=== PATIENT | female | born 1970 | race Caucasian/White ===

== ENCOUNTER 2017-09-12 16:22 | Emergency (ER) | payer OTHER ==
[~2017-09-12] VITALS: Ht 160 cm; Wt 63.5 kg
[2017-09-12] MEDS ORDERED: PANTOPRAZOLE SO40 MG PO (18:50)
[2017-09-12] MEDS ORDERED: CHLORDIAZEPOXID25 MG PO (18:50)
--- NOTE | 2017-09-13 15:28 | EKG ---
[facility] [address] [facility] [place], [place] [address] Signed Normal sinus rhythm Normal ECG Confirmed by MALIK EDWARDS MD ([id number]) on 09/13/2017 3:27:54 PM Electronically Signed By: MALIK EDWARDS MD 09/13/17 1528 PATIENT NAME: DOROTA DESIR Electrocardiogram DATE OF : 66 PHYSICIAN: MALIK EDWARDS MD REPORT #: [id number] REPORT IS CONFIDENTIAL AND NOT TO BE RELEASED WITHOUT AUTHORIZATION
== END 2017-09-12 19:00 | disposition home or self-care (01) ==
LOC: ED 16:22
DX: K20.9 Esophagitis, unspecified (principal); F10.20 Alcohol dependence, uncomplicated; Y90.6 Blood alcohol level of 120-199 mg/100 ml; R07.89 Other chest pain; F17.200 Nicotine dependence, unspecified, uncomplicated
CPT/HCPCS: 80053; 83690; 84484; 85025; 93005; 93010; 96361; 96374; 96375; 99284; G0480; J3411; J7030

== ENCOUNTER 2018-06-06 04:00 | Emergency (ER) | payer OTHER ==
[~2018-06-06] VITALS: Ht 160 cm; Wt 63.5 kg
[~2018-06-06 04:00] MED LIST: CHLORDIAZEPOXID25 MG PO; PANTOPRAZOLE SO40 MG PO
[2018-06-06] MEDS ORDERED: VENTOLIN HFA18 GM INH (04:09)
[2018-06-06] MEDS ORDERED: ALBUTEROL2.5 MG/3 M INH (05:17)
[2018-06-06] MEDS ORDERED: PREDNISONE20 MG PO (05:17)
--- NOTE | 2018-06-07 15:19 | EKG ---
[facility] [address] [facility] [place] [address] Signed Sinus tachycardia Nonspecific T wave abnormality Abnormal ECG When compared with ECG of 12-SEP-2017 16:26, Nonspecific T wave abnormality now evident in Inferior leads Nonspecific T wave abnormality now evident in Lateral leads Confirmed by ALIZA VILLARREAL DO ([id number]) on 06/07/2018 3:19:11 PM Electronically Signed By: ALIZA VILLARREAL DO 06/07/18 1519 PATIENT NAME: DOROTA DESIR BROOKS Electrocardiogram DATE OF : 66 PHYSICIAN: ALIZA VILLARREAL DO REPORT #: [id number] REPORT IS CONFIDENTIAL AND NOT TO BE RELEASED WITHOUT AUTHORIZATION
== END 2018-06-06 05:34 | disposition home or self-care (01) ==
LOC: ED 04:00
DX: J45.901 Unspecified asthma with (acute) exacerbation (principal); Z87.891 Personal history of nicotine dependence; Z79.899 Other long term (current) drug therapy
CPT/HCPCS: 71045; 80053; 83735; 84484; 85025; 93005; 93010; 94644; 96374; 99285-25; J2930; J7030

== ENCOUNTER 2018-07-09 03:36 | Emergency (ER) | payer OTHER ==
[~2018-07-09] VITALS: Ht 160 cm; Wt 57.7 kg
[~2018-07-09 03:36] MED LIST changes: +ALBUTEROL2.5 MG/3 M INH; +PREDNISONE20 MG PO; +VENTOLIN HFA18 GM INH
[2018-07-09] MEDS ORDERED: WELLBUTRIN SR100 MG (03:48)
[2018-07-09] MEDS ORDERED: ALBUTEROL2.5 MG/3 M INH (05:20)
[2018-07-09] MEDS ORDERED: LEVAQUIN750 MG PO (11:34)
== END 2018-07-09 05:30 | disposition home or self-care (01) ==
LOC: ED 03:36
DX: J45.901 Unspecified asthma with (acute) exacerbation (principal); Z87.891 Personal history of nicotine dependence; Z79.899 Other long term (current) drug therapy
CPT/HCPCS: 71046; 80053; 85025; 94644; 96374; 99285-25; J2930

== ENCOUNTER 2018-07-09 09:16 | Inpatient (IN) | payer OTHER ==
[~2018-07-09] VITALS: Ht 160 cm; Wt 58.7 kg
[~2018-07-09 09:16] MED LIST changes: +WELLBUTRIN SR100 MG
--- OUTSIDE RECORDS SUMMARY | 2018-07-09 09:18 | XMS ---
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 [facility] has no Care Guidelines for this patient. [place] VISIT COUNT (12 MO.) 4 [facility] [place] [facility] TOTAL 4 NOTE: Visits indicate total known visits. ED/C VISIT TRACKING (12 MO.) 07/09/2018 09:[address] 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
[2018-07-09] MEDS ORDERED: LEVAQUIN750 MG PO (11:34)
--- NOTE | 2018-07-09 14:30 | NUR ---
PATIENT STILL VERY WHEEZY AND SHORT OF BREATH. PT ATTEMPTING TO DO PURSED LIP BREATHING, BUT AUDIBLE WHEEZING NOTED. PT SWITCHED FROM A NASAL CANNULA 2-3 L TO AN OXY MASK AT 5 L SP02 WAS HOVERING AROUND 90%. WITH OXYMASK ON, SP02 AROUND 97%.
--- NOTE | 2018-07-09 14:38 | NUR ---
RT IN ROOM. PT STRUGGLING TO BREATH. DR. VILLARREAL CALLED ADN AT BEDSIDE. PT TO BE STARTED ON BIPAP.
--- NOTE | 2018-07-09 15:23 | NUR ---
PATIENT RESTING IN BED WITH BIPAP ON. PATIENT HAS BEEN WEARING BIPAP SINCE 1440 WITH SETTINGS OF 14/8 AND 40% FI02.PT'S REMAINS AT BEDSIDE AND ATTENTIVE TO PATIENT. CONTINUE TO MONITOR.
--- NOTE | 2018-07-09 15:50 | NUR ---
PATIENT VERY SHORT OF BREATH AGAIN AND ASKIGN FOR MORE AIR WHILE ON BIPAP. PT GIVEN 1 MG MORPHINE (SEE EMAR) AND RT CALLED. PT NOW RECEIVING NEB TX WHILE ON BIPAP. PT FEELING NAUSEOUS AND TAKES BIPAP OFF BRIEFLY BUT QUICKLY NEEDS BIPAP MASK BACK ON AGAIN SHE STATES, "I CAN'T BREATH." PATIENT RE ASSURED BEST POSSIBLE. PT'S IN ROOM AND ATTENTIVE TO HELPING PATIENT. PATIENT TEARFUL AND STATES TO , "I'M GOING TO TONIGHT." PATIENT REASSURED THAT SHE IS DOING WELL WITH HER BREATHING AND NEEDS TO CONTINUE TO TRY AND STAY CALM AND FOCUS ON HER BREATHING. PT LISTENING TO RN WELL AND TRYING TO RELAX BEST POSSIBLE. CONTINUE TO MONITOR CLOSELY. PATIENT RECENTLY WAS OUT OF BED TO VOID AND ABOUT 10 MINUTES AFTER VOIDING IS WHEN SHE BECAME SO SHORT OF BREATH AGAIN. PT INSTRUCTED THAT GETTING OUT OF BED NEEDS TO BE AVOIDED AT THIS TIME AND WILL ASK MD FOR WILSON FOR PATIENT. PATIENT AGREEABLE AND WILLING TO HAVE WILSON CATHETER. HR IN THE 120s-140s. LAST BP 142/90 (103).
--- NOTE | 2018-07-09 16:10 | NUR ---
WILSON CATHETER PLACED AFTER REC'D TELEPHONE ORDER FROM DR. VILLARREAL. PT WITH >700 ML DILUTE YELLOW URINE IMMEDIATELY. PT RESTING NOW IN BED WITH CINDY AT BEDSIDE. HR 127, SP02 98%, BP 131/86 (8), RR 22. CONTINUE TO MONITOR CLOSELY.
--- NOTE | 2018-07-09 17:50 | NUR ---
PATIENT GIVEN NEB TX AT 1720 BY RT WHILE PATIENT REMAINS ON BIPAP. PATIENT NOTES THAT WHEN SHE HAS THE MORPHINE, IT HELPS QUITE A BIT. HR REMAINS ELEVATED IN THE 120-130s, SINUS TACH. EKG DONE PER RT. CONTINUE TO MONITOR.
--- NOTE | 2018-07-09 18:41 | NUR ---
PATIENT RESTING MORE COMFORTABLY AT THIS TIME. PT INDICATES BY THAT SHE IS FEELING BETTER OVERALL WITH HER GESTURING. HR HAS BEEN NOTED TO BE LOW 119 BRIEFLY, BUT CURRENTLY IS 120s. PT REMAINS ON 19/10 40% BIPAP. PRN ATIVAN AND PRN MORPHINE NEEDED.
--- NOTE | 2018-07-09 18:46 | EKG ---
[facility] [address] [facility] [place] [address] Signed Supraventricular tachycardia Nonspecific ST abnormality Abnormal ECG When compared with ECG of 06-JUN-2018 04:06, Nonspecific T wave abnormality no longer evident in Inferior leads Nonspecific T wave abnormality no longer evident in Lateral leads Confirmed by ALIZA VILLARREAL DO ([id number]) on 07/09/2018 6:46:21 PM Electronically Signed By: ALIZA VILLARREAL DO 07/09/18 1846 PATIENT NAME: DOROTA DESIR BROOKS Electrocardiogram DATE OF : 66 PHYSICIAN: ALIZA VILLARREAL DO REPORT #: [id number] REPORT IS CONFIDENTIAL AND NOT TO BE RELEASED WITHOUT AUTHORIZATION
--- NOTE | 2018-07-09 19:00 | NUR ---
PATIENT STARTING TO FEEL TIGHT IN HER CHEST AGAIN BUT STATES, "I'M TRYING TO STAY CALM." LUNG SOUNDS REVEAL WHEEZES THROUGOUT, LOUDER ON THE RIGHT. HR 120s. SP02 IS 97%. PT ELIGIBLE FOR NEXT NEB AT 1915. WILSON CONTINUES TO DRAIN CLEAR YELLOW URINE.
--- NOTE | 2018-07-09 19:45 | NUR ---
Received report from YESENIA Lincoln at bedside, Dr. Diggs also at bedside. Patient is sitting with HOB at 90 degrees wearing BiPAP, tachpneic, denies feeling SOB, denies feeling chest tightness, reports that "breathing feels better." Denies needs at this time. SpO2 98% with 40% FiO2. IVF infusing, call light within reach, family at bedside.
--- NOTE | 2018-07-09 20:15 | NUR ---
Patient is alert and oriented, denies feeling anxious, breathing is unlabored, tachypnea noted with R between 22 and 26, SpO2 98% on BiPAP with 40% FiO2, denies feeling SOB, denies chest tightness. EXW heard throughout all lung mccarty bilaterally, diminished in left mccarty. HR remains between 120s and 140s, Dr. Diggs is aware, states that we will just monitor throughout the night, will address it if tachycardia continues into tomorrow. Denies nausea, abdomen is non-tender, bowel tones active. Fang present, draining dilute urine. IV sites intact, IVF infusing per order, denies pain at this time, has no needs. Call light within reach, at bedside.
--- NOTE | 2018-07-09 20:45 | NUR ---
Patient reports "my lungs are starting to feel tight again, like they were before." No changes in breathing effort from previous assessment. RT called for breathing treatments.
--- NOTE | 2018-07-09 21:39 | NUR ---
Patient reports her chest feeling "tight," has increased work of breathing, RR up to 28, also reports anxiety, 1mg IV PRN morphine given for SOB. Will continue to monitor closely.
--- NOTE | 2018-07-09 22:09 | NUR ---
Patient is restful with eyes closed, RR 22, HR 105, no SOB noted, does not have increased work of breathing, remains on BiPAP. at bedside, call light within reach.
--- NOTE | 2018-07-09 23:00 | NUR ---
Patient restful with eyes closed, RR 20, HR 100 to 105, denies feeling SOB, denies anxiety. No needs at this time, RT to room for breathing treatment. Call light within reach, at bedside.
--- NOTE | 2018-07-10 00:15 | NUR ---
Patient is restful with eyes closed, breathing is unlabored, RR 21, SpO2 99% with 12/8, 40% FiO2 BiPAP, INW and EXW in right lung mccarty, diminished EXW in left lung mccarty. HR 100 to 110. Call light within reach.
--- NOTE | 2018-07-10 00:40 | NUR ---
Patient requesting drink of water, after taking BiPAP off, after coughing and having drink of water, BiPAP off for 30 seconds or less, patient's work of breathing increased, RR up to 28, SpO2 down to 90%. Placed patient back on BiPAP, RR quickly down between 22 and 24, SpO2 now 98% again. Denies feeling SOB, states "I am feeling much better overall." Denies further needs at this time. Call light within reach, at bedside, IVF infusing per order.
--- NOTE | 2018-07-10 00:55 | NUR ---
Patient has more coughing, now sitting in tripod position, reports anxiety, increased work of breathing, RT called for albuterol treatment, also administered 2 mg IV PRN morphine, will continue to monitor closely.
--- NOTE | 2018-07-10 01:15 | NUR ---
Patient has continued anxiety and mild SOB, 0.5 mg IV PRN lorazepam given. Patient denies further needs at this time. RR now 18, HR 110 to 115. Call light within reach.
--- NOTE | 2018-07-10 02:30 | NUR ---
Patient restful with eyes closed, breathing is even and unlabored, RR 17, SpO2 98% with 40% FiO2 14/8 on BiPAP. HR between 90 and 100. Call light within reach.
--- NOTE | 2018-07-10 04:20 | NUR ---
Patient remains restful, occasional coughing still present, patient states that there is no change in breathing at this time, reports mild SOB, denies need for PRN morphine or PRN ativan. Assessment done, no acute change from previous. HR 120s while awake, RR 24 to 28. Denies needs at this time, call light within reach, at bedside.
--- NOTE | 2018-07-10 06:30 | NUR ---
Patient restful with eyes closed, breathing is even and unlabored on BiPAP. Denies needs at this time, states "breathing feels much better this morning." Call light within each.
--- NOTE | 2018-07-10 08:01 | NUR ---
PATIENT AWAKE AND RESTING ON BIPAP UPON INITIAL ASSESSMENT THIS AM. PT WORE BIPAP MAJORITY OF NIGHT AND ONLY ABLE TO TAKE SMALL BREAKS OFF OF IT. ASSESSMENT COMPLETE. EXP AND INSP WHEEZES REMAIN THIS AM. BIPAP 14/8 WITH 40% FI02. PT STATES OVERALL SHE IS FEELING BETTER, AND HER EPISODES ARE LESS SEVERE THAN YESTERDAY. PT STILL GETS CHEST TIGHTNESS WHEN SHE BECOMES SHORT OF BREATH. NEB GIVEN THIS AM. PT REQUESTING TO HAVE A SMALL AMOUNT OF THE MEDICATION THAT "HELPS TAKE THE EDGE OFF." PT GIVEN 1 MG MORPHINE AT THIS TIME. WILSON DRAINING YELLOW DILUTE URINE. HR LOW 100s. PLAN OF CARE DISCUSSED. QUESTIONS ANSWERED BEST POSSIBLE. CONTINUE TO MONITOR.
--- NOTE | 2018-07-10 08:27 | NUR ---
PATIENT OFF BIPAP AT 0825 TO TRY A CLEAR LIQUID TRAY. CONTINUE TO MONITOR. AM MEDS TO BE GIVEN AT THIS TIME WELL.
--- NOTE | 2018-07-10 08:40 | NUR ---
PATIENT REMAINS OFF BIPAP ON 3 L NC AT THIS TIME. PT TOLERATED HER CLEAR LIQUIDS WELL. HR IN THE 90s CURRENLY. AT BEDSIDE.
--- NOTE | 2018-07-10 09:21 | NUR ---
PATIENT CONTINUES TO REMAIN OFF BIPAP AT THIS TIME, ON 3 L NC AND DOING WELL. PT STATES, "I FEEL OKAY, I'M A LITTLE BETTER." PATIENT BRUSHING TEETH IN BED AND WASHING FACE WITH WARM CLOTH. AT BEDSIDE. CONTINUE TO MONITOR.
--- NOTE | 2018-07-10 10:47 | NUR ---
DR. VILLARREAL IN TO SEE PATIENT. PT REMAINS OFF BIPAP SINCE 824. PT REPORTS SHE IS ABLE TO TELL WHEN SHE IS STARTING TO NEED A NEB AND STATES AT THIS TIME SHE IS STARTING TO FEEL A LITTLE TENSE AGAIN. HR 90-100s. RT CALLED AND HERE NOW TO GIVE NEB TX.
--- NOTE | 2018-07-10 11:40 | NUR ---
PATIENT REMAINS OFF BIPAP BUT ON OXYGEN 3 L NC. AFTER NEB TX AROUND 1115, PATIENT TOOK OXYGEN OFF TO BLOW HER NOSE AND SP02 NOTED TO DROP TO 86% WITHIN ABOUT 1 MINUTE. OXYGEN PLACED BACK ON AND SP02 NOW BACK TO 96-97%. PT IS NOW SITTING UP IN BED AND EATING LUNCH. PT'S DAUGHER REMAINS AT BEDSIDE. HR 110s CURRENTLY. CONTINUE TO MONITOR.
--- NOTE | 2018-07-10 12:05 | NUR ---
PATIENT CALLS AND STATES SHE FEELS LIKE SHE NEEDS A NEB OR TO GO BACK ON THE BIPAP MASK SHE CAN FEEL THE TIGHTNESS COMING BACK ON. LUNG SOUNDS REVEAL EXP WHEEZES THROUGHOUT. PLACED BIPAP BACK ON AT THIS TIME AND WILL RE-EVALUATE PATIENT IN 5-10 MINUTES. SP02 IS 99%. CONTINUE TO MONITOR.
--- NOTE | 2018-07-10 12:37 | NUR ---
PATIENT OFF BIPAP AND BACK ON 3 L AT THIS TIME. PT STATES SHE FEELS LESS SHORT OF BREATH AT THE MOMENT. ENCOURAGED TO CONTINUE RESTING WITHOUT TALKING TOO MUCH AT THIS TIME.
--- NOTE | 2018-07-10 14:05 | NUR ---
PATIENT HAS BEEN RESTING IN BED. IV SOLUMEDROL GIVEN AT THIS TIME. PT DENIES NEEDING NEB AT THIS TIME. PT REMAINS ON 3 L NC. PT'S AND FRIEND AT BEDSIDE. CONTINUE TO MONITOR.
--- NOTE | 2018-07-10 15:15 | NUR ---
PATIENT STATES SHE CAN FEEL TIGHTNESS COMING ON AGAIN. RT CALLED FOR NEB TX AND NOW HERE GIVING NEB. LAST NEB WAS AT 1100. CONTINUE TO MONITOR.
--- NOTE | 2018-07-10 16:16 | NUR ---
PATIENT HELPED UP TO CHAIR AND GIVEN BATH WIPES TO WIPE DOWN SURFACES. WILSON CATH CARE PROVIDED. PT TOLERATED THIS ACTIVITY WELL AND REMAINS SITTING IN CHAIR AT THIS TIME. PT DENIES FEELING SHORT OF BREATH WITH THIS ACTIVITY. OXYGEN TURNED DOWN TO 2 L NC. CALL LIGHT WITHIN REACH. CONTINUE TO MONITOR.
--- NOTE | 2018-07-10 16:49 | NUR ---
PATIENT AMBULATES INTO THE BATHROOM AND NOT ABLE TO HAVE A BM BUT ABLE TO PASS GAS. PT NOW SITTING BACK IN CHAIR. IVF D/C PER DR. EDWARDS. PT TOLERATED AMBULATION WELL WITHOUT BECOMING TOO SHORT OF BREATH AND SP02 REMAINED 93% AND GREATER.
--- NOTE | 2018-07-10 17:58 | NUR ---
PATIEN REMAINS SITTING IN CHAIR AND TOLERATING THIS WELL. PT DENIES SHORTNESS OF BREATH. REMAINS ON 2 L NC. WILSON TO BE D/C AT 0600 TOMORROW AM.
--- NOTE | 2018-07-10 18:56 | NUR ---
PATIENT GET BACK INTO BED WITH ASSISTANCE OF HER . PT COUGHING, REMAINS UNPRODUCTIVE.
--- NOTE | 2018-07-10 19:35 | NUR ---
REPORT RECEIVED, PT RESTING IN BED, AOX4, ON 2LNC, VSS, O2 SAT 96%, NO C/O SOB/CP, RR 17, PT'S AT BEDSIDE, WILSON CATH DRAINING WNL. NO REQUESTS AT THIS TIME, CALL LIGHT WITHIN REACH. FALL PRECAUTIONS IN PLACE.
--- NOTE | 2018-07-10 21:03 | NUR ---
IN ROOM FOR ASSESSMENT PT RESTING IN BED WATCHING TV, AOX4, ON 2LNC, NO C/O SOB/CP, O2 SAT 95%, PT STATES THAT HER BREATHING IS FEELING MUCH BETTER, LS HAVE WHEEZES ON LEFT SIDE WELL UPPER RIGHT LOBES, LOWER LOBES DIMINISHED, PT DENIES ANY DISCOMFORT WITH DEEP BREATHING, OCCASIONAL COUGH NOTED, CONGESTED, PT DENIES ANY SPUTUM PRODUCTION ASSOCIATED, HEART SOUNDS REGULAR, BT ACTIVE, PT DENIES ANY PAIN. DENIES ANY NEEDS AT THIS TIME. IV SL X2 FLUSHING WELL. CALL LIGHT WITHIN REACH. REMAINS IN ROOM. FALL PRECAUTIONS IN PLACE.
--- NOTE | 2018-07-10 21:59 | NUR ---
PT PLACED ON BIPAP WHILE PT IS GOING TO GO TO SLEEP, BIPAP 19/10, FIO2: 30%, O2 SAT 95%, PT DENIES SOB/CP, PT STATES THAT SHE FEELS COMFORTABLE, RR 19, NEW ICE WATER PROVIDED, NO FURTHER REQUESTS AT THIS TIME, CALL LIGHT WITHIN REACH.
--- NOTE | 2018-07-10 23:41 | NUR ---
PT RESTING IN BED, EYES CLOSED, BREATHS EVEN, UNLABORED, ON BIPAP, O2 SAT 95%, RR 18, HR 79, NO REQUESTS AT THIS TIME, CALL LIGHT WITHIN REACH. FALL PRECAUTIONS IN PLACE.
--- NOTE | 2018-07-11 00:33 | NUR ---
IN ROOM FOR ASSESSMENT, PT AOX4, ON BIPAP, RT IN ROOM TO ADMIN NEB, PT'S O2 SAT 95% ON BIPAP, BIPAP AT 14/8, FIO2 30%, PT DENIES SOB/CP, STATES THAT SHE IS COMFORTABLE, DENIES FURTHER NEEDS AT THIS TIME, CALL LIGHT WITHIN REACH.
--- NOTE | 2018-07-11 01:35 | NUR ---
PT RESTING IN BED, ON BIPAP, O2 SAT 95%, NO REQUESTS AT THIS TIME, CALL LIGHT WITHIN REACH. FALL PRECAUTIONS IN PLACE. REMAINS AT BEDSIDE.
--- NOTE | 2018-07-11 02:41 | NUR ---
PT RESTING IN BED, ON BIPAP: 19/10 @30%, O2 SAT 100%, HR 87, RR 19, NO REQUESTS AT THIS TIME, CALL LIGHT WITHIN REACH. FALL PRECAUTIONS IN PLACE.
--- NOTE | 2018-07-11 04:19 | NUR ---
RT IN ROOM ADMINISTERING A NEB, PT C/O PERSISTANT COUGH AT THIS TIME, PRN COUGH MED GIVEN PER EMAR, PT'S LS ARE MORE CLEAR AFTER NEB, NO WHEEZES, IMPROVED AERATION, UPPER LOBES CLEAR, LOWER LOBES CLEAR/DIM, PT STATES THAT SHE STILL FEELS THAT HER COUGH IS CONGESTED HOWEVER REMAINS NONPRODUCTIVE. PT ON 2LNC AT THIS TIME, O2 SAT 93%, NO C/O SOB/CP, NO REQUESTS AT THIS TIME, CALL LIGHT WITHIN REACH.
--- NOTE | 2018-07-11 05:00 | NUR ---
PT AOX4, APPROPRIATE, PT'S BREATHING HAS IMPROVED THIS SHIFT, ON 2LNC TO START SHIFT, NO C/O SOB/CP, WHILE PT WAS SLEEPING PT USED BIPAP FOR MAJORITY OF THE NIGHT UNTIL 0400, O2 SAT >94%, HR 80'S, RR WNL, PT RECEIVED PRN TESSALON PEARLS RELTED TO CONGESTED, NONPRODUCTIVE COUGH. SCHEDULED NEBS GIVEN. IV SL X2, WILSON CATH DRAINING WNL, TO BE REMOVED THIS AM PER ORDER. PT 1 PERSON ASSIST. VSS, AFEBRILE. CALLS APPROPRIATELY.
--- NOTE | 2018-07-11 06:56 | NUR ---
STEVE D/C'D THIS MORNING AFTER REMOVING NEARLY 15ML NS FROM BALLOON. PT TOLERATED WELL. AMBULATED TO BATHROOM TO PUT ON UNDERWEAR AND PANTS AND TO BRUSH TEETH.
--- NOTE | 2018-07-11 07:00 | NUR ---
MORNING MED GIVEN, PT AOX4, ON 2LNC, NO C/O SOB/CP, PT STATES THAT HER COUGH HAS SUBSIDED, PT DENIES ANY NEEDS AT THIS TIME, O2 SAT >95%, BETO RN IN ROOM TO REMOVE PT'S WILSON CATH. CALL LIGHT WITHIN REACH. FALL PRECAUTIONS IN PLACE.
--- NOTE | 2018-07-11 07:53 | NUR ---
PATIENT AWAKE AND LAYING IN BED. STATES HE HAD DIFFICULTY SLEEPING LAST NIGHT. VITAL SIGNS AND ASSESSMENT COMPLETED. D5LR RUNNING AT 125 MLS/HR. PATIENT AMBULATED TO BEDSIDE CHAIR WITH FEET ELEVATED AND PILLOW POSITIONED UNDERNEATH HIS LEGS. BREAKFAST ORDERED. PATIENT DENIES ANY FURTHER NEEDS AT THIS TIME, CALL LIGHT WITHIN REACH.
--- NOTE | 2018-07-11 08:39 | NUR ---
PATIENT SITTING UP IN BED WITH LEGS FOLDED. IN ROOM WITH PATIENT. RT PROVIDING DUONEB AND BREAKFAST IN ROOM WITH PATIENT. PATIENT LUNG SOUNDS CLEAR IN UPPER LOBES AND COURSE IN BASES. PATIENT HAD PRODUCTIVE COUGHT WITH SCANT AMOUNT OF CLEAR SPUTUM. PATIENT TITRATED FROM 1L NC TO ROOM AIR FOR BREAKFAST, SP02 OF 92. VITAL SIGNS AND ASSESSMENT COMPLETED. PATIENT STATES SHE WOULD LIKE TO SHOWER THIS MORNING AND PLAN TO ACCOMPLISH BY LUNCH. PLAN OF CARE FOR THE DAY IS DISCUSSED WITH PATIENT. SHE DENIES ANY FURTHER NEEDS AT THIS TIME, CALL LIGHT WITHIN REACH.
--- NOTE | 2018-07-11 09:45 | NUR ---
DR. EDWARDS IN ROOM WITH PATIENT. AM MEDICATIONS GIVEN. TOLERATING ROOM AIR AT 94%. ABX INFUSING CURRENTLY. PATIENT STATES SHE HAS MORE DIFFICULTY WITH ALLERGIES DURING SPRING. PATIENT COUGHS INTERMITTENTLY, NON PRODUCTIVE.
--- NOTE | 2018-07-11 10:41 | NUR ---
PLAN OF CARE WITH PATIENT DISCUSSED. PATIENT INFORMED SHE IS TRANSFERING TO THE MED SURG FLOOR TODAY.
--- NOTE | 2018-07-11 11:30 | NUR ---
PATIENT RETURNS FROM SHOWER IN 126 AND TOLERATED THIS ACTIVITY WELL. PT DENIES FEELING ANY SHORTNESS OF BREATH. SP02 UPON RETURN TO ROOM IS 91-94% ON ROOM AIR . PT NOT TACHYNPEIC. PT NOW RECEIVING NEB TX WITH RT. PT TO TRANSFER TO / 108 WITHOUT TELEMETRY. PT AND UPDATED ON PLAN OF CARE. ALL QUESTIONS ANSWERED BEST POSSIBLE.
[2018-07-11] MEDS ORDERED: LORATADINE10 MG PO (11:38)
[2018-07-11] MEDS ORDERED: FLUTICASONE PRO16 GM NAS (11:39)
--- NOTE | 2018-07-11 12:01 | NUR ---
REPORT GIVEN TO YESENIA PETERSON ON MED/SURG WHO WILL BE RESUMING CARE FOR THIS PATIENT. PATIENT TO AMBULATE TO ROOM 108 ON MED/SURG.
--- NOTE | 2018-07-11 12:41 | NUR ---
PT ARRIVED FROM CCU. PT AMBULATED TO ROOM. TACHYCARDIC WITH ACTIVITY. PT REPORTS FEELING "ABOUT BACK TO NORMAL." ASSESSMENT DONE. LUNG SOUNDS CLEAR. VITALS TAKEN. PIVS SALINE LOCKED AT THIS TIME. PTS AT BESIDE. EDUCATION DONE. PT AND VERBLAIZE UNDERSTANDING OF ASTHMA AND PLAN OF CARE. NO ADDITIONAL REQUESTS OR COMPLAINTS AT THIS TIME. MEDICATIONS GIVEN. CALL LIGHT WITHIN REACH.
--- NOTE | 2018-07-11 14:19 | NUR ---
THIS RN TO ROOM TO CHECK ON PT. PT UP ON COUCH VISITING WITH . O2 SATURATION 96% WITH HR OF 98 AFTER A WALK IN THE ANDUJAR. PT PLANS TO WALK AGAIN SOON. PT DENIES PAIN AND NAUSEA. NO REQUESTS OR COMPLAINTS AT THIS TIME. CALL LIGHT WITHIN REACH.
--- NOTE | 2018-07-11 17:07 | NUR ---
AFTERNOON ASSESSMENT DUE. THIS RN TO BEDSIDE. PT SITTING UP IN BED AND TAKING FREQUENT WALKS AROUND UNIT. PT DENIES PAIN, NAUSEA, AND SOB. PT REPORTS "VERY COMFORTABLE." LUNG SOUND CLEAR, OCCATIONAL COUGH NOTED. PT DEMONSTRATES USE OF CORNET. PT EATING DINNER, NO ADDITIONAL REQUESTS OR COMPLAINTS AT THIS TIME. CALL LIGHT WITHIN REACH.
--- NOTE | 2018-07-11 18:09 | NUR ---
PT TRANSFERED FROM CCU THIS SHIFT FOR ASTHMA EXACERBATION. LUNG SOUNDS CLEAR THIS SHIFT. PT INDEPENDANT IN ROOM AND AMBULATING FREQUENTLY. PT TOLERATING REGULAR DIET WITH NO NAUSEA. NO PAIN THIS SHIFT. PT TOLERATING ROOM AIR WITH O2 SATURATIONS ABOVE 92%. BIPAP AT BEDSIDED IF NEEDED, NOT NEEDED THIS SHIFT. PIV SALINE LOCKED. WILSON CATHETER DC'D, VOIDING QUANTITY SUFFICIENT. PT ANTICIPATING DISCHARGE TOMORROW. PT USES CALL LIGHT APPROPRIATLY.
--- NOTE | 2018-07-11 18:13 | NUR ---
PATIENT SITTING UP IN BED WATCHING TV, IN ROOM. FRESH WATER GIVEN. CALL LIGHT IN REACH. NO FURTHER NEEDS AT THIS TIME.
--- NOTE | 2018-07-11 19:05 | NUR ---
ROUNDED CHARGE. PATIENT IS AMBULATING IN HALLWAY AT THIS TIME. PATIENT DENIES ANY NEEDS.
--- NOTE | 2018-07-11 19:10 | NUR ---
SHIFT REPORT RECEIVED. PATIENT SITTING UP IN BED. REPORTS FEELING FLUSHED AND REQUEST HER O2 SAT BE ASSESSED. PATIENT IS 95% ON ROOM AIR. SHE STATES "IT MIGHT JUST BE A HOT FLASH BECAUSE ITS STARTING TO GO AWAY". PATIENT DENIES ANY NEEDS AT THIS TIME. FAMILY AT BEDSIDE.
--- NOTE | 2018-07-11 20:25 | NUR ---
PATIENT PROVIDED WITH SCHEDULED NEB TREATMENT. DISCUSSION OF PRN COUGH SUPPRESSANT. PLAN OF CARE FOR THIS SHIFT DISCUSSED BETWEEN RT, THIS RN AND THE PATIENT. PATIENT APPEARS TO BE IN GOOD SPIRITS, IS CALM AND RESTING. TOLERATING ROOM AIR. LUNGS ARE CLEAR. REPORTS SMALL AMOUNT OF SPUTUM WITH COUGH THIS AFTERNOON. VS STABLE. PATIENT DENIES ANY CONCERNS. CALL LIGHT IN REACH.
--- NOTE | 2018-07-11 21:20 | NUR ---
PATIENT PROVIDED WITH TESSLON GIA AND FRESH ICE WATER. PATIENT RESTING IN BED WATCHING TV. DENIES ANY FURTHER NEEDS. AT BEDSIDE.
--- NOTE | 2018-07-11 23:05 | NUR ---
PATIENT APPEARS TO BE SLEEPING SOUDNLY. RR 20. FAMILY IN ROOM. CALL LIGHT IN REACH.
--- NOTE | 2018-07-12 01:26 | NUR ---
PATIENT APPEARS TO BE SLEEPING SOUNDLY. DID NOT STIR WHEN RN ENTERED ROOM. RR20. FAMILY AT BEDSIDE.
--- NOTE | 2018-07-12 04:00 | NUR ---
PATIENT APPEARS TO BE SLEEPING SOUNDLY. RR 20. AWAKE AT BEDSIDE. DENIES NEEDS.
--- NOTE | 2018-07-12 05:02 | NUR ---
PATIENT WOKE AND REPORTS HAVING A "HOT FLASH". TEMP IN ROOM REDUCED AND COOL WASH CLOTH PROVIDED. RT CALLED FOR NEB TREATMENT. PATIENT HAS EXPIRTORY WHEEZES THROUGHOUT. O2 SAT WNL ON ROOM AIR. FRESH ICE WATER PROVIDED. PATIENT DECLINES FURTHER NEEDS. IS RESTING IN BED, APPEARS TO BE IN NO DISTRESS.
--- NOTE | 2018-07-12 05:11 | NUR ---
PATIENT WAS ABLE TO SLEEP SEVERAL HOURS THIS SHIFT. HAS OCCATIONAL "HOT FLAHES" WITHOUT FEVER. VS STABLE. TOLERATING ROOM AIR. SCHEDULED NEBS. EXPIRTORY WHEEZES THROUGHOUT THIS MORNING, NOT FULLY RELIEVED BY NEBS. PATIENT VOIDING WELL. INDEPENDENT IN THE ROOM. TOLERATING REGULAR DIET.
--- NOTE | 2018-07-12 07:28 | NUR ---
REPORT RECEIVED FROM YESENIA PRATHER. PT DENIES PAIN, NAUSEA AND SOB. PT REPORTS OCCATIONAL HOT FLASHES WHICH ARE "NOT NEW." PT STATES SHE FEELS "PRETTY MUCH BACK TO NORMAL." PIVS COVERED FOR SHOWER. PT UP TO SHOWER INDEPENDANTLY. PT DEMONSTRATES USE OF CALL LIGHT. BREAKFAST ORDERED. NO ADDITIONAL REQUESTS OR COMPLAINTS AT THIS TIME.
--- NOTE | 2018-07-12 08:38 | NUR ---
MORNING ASSESSMENT AND MEDICATIONS DUE. PT FINISHED WITH SHOWER AND BACK TO BED. PT DRESSED IN CLOTHES FROM HOME. ASSESSMENT DONE. SMALL EXPRATORY WHEEZE IN LEFT UPPER LOBE. LUNG SOUNDS OTHERWISE CLEAR. PT REPORTS SHE DID NOT NEED THE BIPAP TO SLEEP LAST NIGHT AND "SLEPT REALLY WELL." HARSH COUGH NOTED. PT REPORTS COUGH IS DRY AND SHE IS NOT COUGHING ANYTHING UP. RT TO BEDSIDE FOR BREATHING TX. MEDICATIOSN GIVEN. PT EATING BREAKFAST. NO ADDITIONAL REQUESTS OR COMPLAINTS AT THIS TIME. CALL LIGHT WITHIN REACH.
--- NOTE | 2018-07-12 09:30 | NUR ---
THIS RN TO ROOM TO CHECK ON PT. IV ABX COMPLETE. PIV SALINE LOCKED. ALCOHOL CAPS APPLIED. PT TALKIKNG TO FAMILY ON PHONE. PT DENIES SOB AT THIS TIME. BED CALL LIGHT WITHIN REACH. NO ADDITIONAL REQUESTS OR COMPLAINTS AT THIS TIME.
--- NOTE | 2018-07-12 12:21 | NUR ---
PT SITTING IN CHAIR, ALERT AND ORIENTED. SHE MENTIONED THAT SHE IS WAITING TO BE DC'D. PT IS FEELING MUCH BETTER, AND COMMENTED THAT THIS IS THE FIRST TIME ANYTHING LIKE THIS HAS HAPPENED WITH HER BREATHING. PLEASANT VISIT, EXTENDED A BLESSING, WILL FOLLOW NEEDED
--- NOTE | 2018-07-12 12:21 | NUR ---
NOON ASSESSMENT DUE. PT FINISHING NEB TX WITH RESPIRATORY THERAPY. CORNET USED. PT DENIES SOB AND STATES SHE IS "FEELING NORMAL" EXCEPT FOR "MY SINUSES FEEL TIGHT." LUNG SOUNDS CLEAR. PT ANTICIPATING DISCHARGE. LUNCH ORDERED. NO ADDITIONAL REQUESTS OR COMPLAINTS AT THIS TIME. CALL LIGHT WITHIN REACH. PT VISITING WITH ON PHONE.
--- NOTE | 2018-07-12 12:35 | NUR ---
THIS RN TO ROOM FOR ROUNDS WITH MD. PT READY FOR DISCHARGE. PT FINISHING LUNCH WHILE WAITING FOR PAPER WORK. NO ADDITIONAL REQUESTS OR COMPLAINTS AT THIS TIME. CALL LIGHT WITHIN REACH.
[2018-07-12] MEDS ORDERED: CEFPODOXIME PR200 MG PO (12:41)
[2018-07-12] MEDS ORDERED: AZITHROMYCIN250 MG PO (12:41)
[2018-07-12] MEDS ORDERED: PREDNISONE20 MG PO (12:43)
[2018-07-12] MEDS ORDERED: FLOVENT HFA12 GM INH (12:49)
[2018-07-12] MEDS ORDERED: SEREVENT DISKU1 PUFF INH (12:51)
--- NOTE | 2018-07-12 13:38 | NUR ---
PT READY FOR DISCHRAGE. PHARMACIST IN TO VISIT WITH PT REGARDING DISCHRAGE MEDICATIONS. PT VERBALIZES UNDERSTANDING OF MEDICATIONS AND STATES HER QUESTIONS HAVE BEEN ANSWERED. PIV'S DC'D PER PROTOCOL, WNL, JOAQUÍN AND WALLACE APPLIED. VITALS TAKEN. DISCHRAGE INSTRUCTIONS REVIEWED WITH PT. PT VERBALIZES UNDERSTANDING AND STATES HER QUESTIONS HAVE BEEN ANSWERED. PT AWAITING HER RIDE HOME. NO ADDITIONAL REQUESTS OR COMPLAINTS AT THIS TIME. CALL LIGHT WITHIN REACH.
--- NOTE | 2018-07-12 14:35 | NUR ---
PTS FAMILY ARRIVED. PT CHANGES CLOTHES INDEPENDANTLY. PT DENIES ADDITIONAL REQUESTS, COMPLAINTS OR QUESTIONS. PT WHEELED FROM UNIT WITH ALL BELONGINGS.
== END 2018-07-12 14:40 | disposition home or self-care (01) | DRG 202 ==
LOC: ED 09:16 → CCU 09:18 → MS 07-11 12:25
PROVIDERS: ADMIT Student in an Organized Health Care Education/Training Program
PROC: 5A09357 Assistance with Respiratory Ventilation, Less than 24 Consecutive Hours, Continuous Positive Airway Pressure (ICD-10-PCS; principal; 2018-07-09)
DX: J45.41 Moderate persistent asthma with (acute) exacerbation (principal); J96.01 Acute respiratory failure with hypoxia; J18.9 Pneumonia, unspecified organism; R91.8 Other nonspecific abnormal finding of lung field; F39 Unspecified mood [affective] disorder; K21.9 Gastro-esophageal reflux disease without esophagitis; Z87.891 Personal history of nicotine dependence; Z79.51 Long term (current) use of inhaled steroids; Z79.899 Other long term (current) drug therapy
CPT/HCPCS: 36415; 51702; 71260; 80048; 80053; 83605; 83735; 85025; 86317; 87449; 93005; 93010; 94640; 94660; 94667; 94668; 94760; 99291; J0456; J0696; J1650; J2060; J2270; J2405; J2930; J3475; J7030; J7120; Q9967

== ENCOUNTER 2019-02-20 19:10 | Inpatient (IN) | payer OTHER ==
[~2019-02-20] VITALS: Ht 160 cm; Wt 55.2 kg
[~2019-02-20 19:10] MED LIST changes: +AZITHROMYCIN250 MG PO; +CEFPODOXIME PR200 MG PO; +FLOVENT HFA12 GM INH; +FLUTICASONE PRO16 GM NAS; +LEVAQUIN750 MG PO; +LORATADINE10 MG PO; +SEREVENT DISKU1 PUFF INH
[2019-02-20] MEDS ORDERED: HYDROXYZINE PAM25 MG PO (19:21)
[2019-02-20] MEDS ORDERED: GABAPENTIN300 MG PO (19:21)
--- NOTE | 2019-02-20 23:30 | NUR ---
PT ARRIVED TO UNIT VIA STRETCHER FROM ED. PT ABLE TO STAND AND SELF TRANSFER, GAIT STEADY. PT ON 1L NC, ABLE TO SPEAK IN FULL SENTENCES, NO ACUTE DISTRESS NOTED. AT BEDSIDE.
--- NOTE | 2019-02-21 00:33 | NUR ---
AAOX4 AND RESPONDING APPROPRIATELY. SINUS TACH WITH HR 100-115, PULSES +2 BILAT IN BUE AND BLE. LUNGS TIGHT AND DIMINSHIED THROUGHOUT, EXPIRATORY WHEEZE TO LLL, OCCASIONAL PRODUCTIVE COUGH, SPO2 91% ON 1L, RR 18-22. BOWEL TONES ACTIVE, DENIES NAUSEA. DUE TO VOID. INTEGUMENTARY GROSSLY INACT. DENIES PAIN. IV SITE FLUSHED AND PATENT, LR INFUSING AT 500 ML/HR. ORIETNED TO ROOM, BED, AND CALL LIGHT. UPDATED PLAN OF CARE. EDUCATION PROVIDED ON SAFETY AND FALL PRECAUTIONS. NONSLIP SOCKS IN PLACE. ALL QUESTIONS ANSWERED. DENIES OTHER NEEDS. CALL LIGHT WITHIN REACH.
--- NOTE | 2019-02-21 01:32 | NUR ---
HANDOFF REPORT RECEIVED FROM YESENIA HERRERA. ASSUMED CARE OF pt. CALL LIGHT ANSWERED. SBA TO BSC FOR VOID AND BACK TO BED. SATURATIONS 93% ON 1L OXYGEN BY NC. BREATHING EQUAL AND UNLABORED. IVF INFUSING WNL ORDERED. LIGHTS TURNED OFF IN ROOM. CALL LIGHT IN REACH.
--- NOTE | 2019-02-21 02:32 | NUR ---
IV FLUID BOLUS COMPLETE. NEW BAG IVF INFUSING ORDERED. pt AWAKE IN BED, COUGHING. TEMPERATURE REASSESSED, 98.9 ORAL. ICE WATER PROVIDED. SPO2 91% ON 1L OXYGEN BY NC. CALL LIGHT IN REACH.
--- NOTE | 2019-02-21 03:15 | NUR ---
pt UP TO COMMODE FOR VOID AND BACK TO BED. TOLERATING AMBULATION WELL, BREATHING UNLABORED. SATURATIONS 93% ON 1L OXYGEN BY NC. pt DENIES ANY NEEDS AT THIS TIME. CALL LIGHT IN REACH.
--- NOTE | 2019-02-21 03:50 | NUR ---
SPO2 MONITOR OFF pt. AWAKENS TO VOICE, SPO2 95% ON 1L OXYGEN BY NC. ASSESSMENT COMPLETE. LUNG SOUNDS CLEAR THROUGHOUT, EXPIRATORY WHEEZE LEFT LOWER LOBE. pt WITH OCCASIONAL DRY COUGH. RR 20, UNLABORED. DENIES ANY NEEDS AT THIS TIME. CALL LIGHT IN REACH.
--- NOTE | 2019-02-21 06:28 | NUR ---
IN pt ROOM FOR SCHEDULED MEDICATION ADMINISTRATION. pt AWAKE, COUGHING. RT SANTANA IN ROOM FOR PRN BREATHING TREATMENT. pt TITRATED TO ROOM AIR, SPO2 92%. PRN PAIN MEDICATION ADMINISTERED FOR 3/10 SERRANO. ICE WATER PROVIDED. IVF INFUSING WNL. pt DENIES ANY ADDITIONAL NEEDS AT THIS TIME. CALL LIGHT IN REACH.
--- NOTE | 2019-02-21 07:13 | NUR ---
pt RESTING IN BED WITH EYES CLOSED. SPO2 DROPS TO 89% WITH SLEEP. TITRATED OXYGEN TO 1L BY NC, SPO2 INCREASES TO 94-95%.
--- NOTE | 2019-02-21 07:20 | NUR ---
REPORT RECEIVED FROM YESENIA NELSON. PT RESTING IN BED AND STATES "I FEEL A LOT BETTER." NO COUGH OR SOB NOTED. PT REMAINS ON 1L O2 BY SC WITH O2 SATURATION AT 93%. PT DENIES PAIN. PT ASSISTED WITH ORDERING BREAKFAST. FLU VACCINE DISCUSSED WITH PT. PT REPORTS SHE DID NOT RECEIVE A FLU VACCINE THIS YEAR AND WOULD LIKE TO RECEIVE ONE WHILE HERE. NO ADDITIONAL REQUESTS OR COMPLAINTS AT THIS TIME. PT TALKING WITH FAMILY ON THE PHONE. CALL LIGHT WITHIN REACH. BED RAILS UP.
--- NOTE | 2019-02-21 08:34 | NUR ---
MORNING ASSESSMENT AND MEDICATIONS DUE. PT REPORTS MILD HEADACHE AT 2/10 AND "TENSE NECK." WARM PACK PROVIDED. NON PRODUCTIVE COUGH NOTED. PT TACHYCARDIC AT TIMES WITH ACTIVITY AND COUGHING. LUNG SOUNDS IMPROVED WITH OCCATIONAL COURSNESS IN BASES. PT REPORTS "FEELING MUCH BETTER THAN YESTERDAY. MD CONSULTED REGARDING FEBRIAL TEMPERATURE YESTERDAY AND ORDERED FLU SHOT. MD STATES OK TO TO GIVE FLU SHOT. MEDICATIONS GIVEN. PT EATING BREAKFAST. ORDERS TO TRANSFER PT TO MED/SURG FLOOR. PT UPTED ON PLAN OF CARE. PT VERBALIZES UNDERSTANDING AND STATES HER QUESTIONS HAVE BEEN ANSWERED. NO ADDITIONAL REQUESTS OR COMPLAINTS AT THIS TIME. CALL LIGHT WITHIN REACH.
--- NOTE | 2019-02-21 08:40 | NUR ---
FAMILY TO BEDSIDE TO VISIT WITH PT. FAMILY UPDATED PER PT. QUESTIONS ASKED AND ANSWERED.
--- NOTE | 2019-02-21 09:22 | NUR ---
PT CALL LIGHT ON. SBA UP TO RESTROOM. VOID MISSES HAT, SBA BACK TO BED. TRANSFER ORDERS RECEIVED. TELE DC'D PER MD ORDER. CPOX REMAINS IN PLACE, 96% ON ROOM AIR. PT FINISHED WITH BREAKFAST. NO ADDITIONAL REQUESTS OR COMPLAINTS. PT REPORTS HEADACHE HAS RESOLVED. CALL LIGHT WITHIN REACH. FAMILY AT BEDSIDE.
--- NOTE | 2019-02-21 10:25 | NUR ---
THIS RN TO ROOM TO CHECK ON PT. PT UPDATED ON PLAN OF CARE. PT DENIES PAIN AND SOB. O2 94% ON ROOM AIR. NO ADDITIONAL REQUESTS OR COMPLAINTS. PT VISITIGN WITH FAMILY. CALL LIGHT WITHIN REACH.
--- NOTE | 2019-02-21 11:42 | NUR ---
PT CALL LIGHT ON. SBA UP TO RESTROOM. PT ENCORUAGED TO AMBULATE. PT UP TO AMBULATION X3 LAPS AROUND MED/SURG ANDUJAR. PT TOLERATED WELL WITH NO SOB NOTED. O2 SATURATION MAINTAINS ABOVE 90% ON ROOM AIR WITH AMBULATION. PT BACK TO ROOM. ASSESSMENT DONE. LUNG SOUNDS CLEAR. COUGH CONTINUES INTERMITTANTLY. LUNCH ORDER PLACED. PT DENIES HEADACHE OR NEED FOR NICOTENE PATCH. PT HAS COUGH DROP IN MOUTH "MY HELEN IT FOR ME." NO ADDITIONAL REQUESTS OR COMPLAINTS AT THIS TIME. CALL LIGHT WITHIN REACH.
--- NOTE | 2019-02-21 12:30 | NUR ---
PT EAING LUNCH. O2 93% ON ROOM AIR. NO REQUESTS OR COMPLAINTS AT THIS TIME. CALL LIGHT WITHIN REACH. AT BEDSIDE.
--- NOTE | 2019-02-21 12:52 | EKG ---
[facility] [address] [facility] [place] [address] Signed Sinus tachycardia Biatrial enlargement T wave abnormality, consider inferior ischemia Abnormal ECG When compared with ECG of 09-JUL-2018 17:05, T wave inversion now evident in Inferior leads T wave inversion now evident in Anterior leads Confirmed by MALIK EDWARDS MD ([id number]) on 02/21/2019 12:52:11 PM Electronically Signed By: MALIK EDWARDS MD 02/21/19 1252 PATIENT NAME: DOROTA DESIR BROOKS Electrocardiogram DATE OF : 66 PHYSICIAN: MALIK EDWARDS MD REPORT #: [id number] REPORT IS CONFIDENTIAL AND NOT TO BE RELEASED WITHOUT AUTHORIZATION
--- NOTE | 2019-02-21 13:03 | NUR ---
PT CONTINUES TO MAINTAIN O2 SATURATION ABVOE 92% ON ROOM AIR. COPX DC'D. SBA UP TO RESTROOM. PT VOIDS WITHOUT ISSUE. SBA BACK TO BED. PT FINISHED WITH LUNCH AND ANTICIPATING TRANSFER TO MED/SURG FLOOR. NO ADDITIONAL REQUESTS OR COMPLAINTS. CALL LIGHT WITHIN REACH.
--- NOTE | 2019-02-21 14:10 | NUR ---
MEDICATION DUE. GIVEN ORDERED (SEE MAR). PT ENCORUAGED TO AMBULATE. PT UP TO AMBULATE X3 LAPS AROUND MED/SURG AND DOWN TO BUSINESS CONTINUITY COORDINATOR AND BACK. NO SOB NOTED. PT DENIES PAIN AND NAUSEA. O2 REAMINS AT 96% ON ROOM AIR. PT REPORTS SHE FEELS "REALLY GOOD." PT WONDERING IF SHE CAN GO HOME TODAY. WILL CONSULT MD. NO ADDITIONAL REQUESTS OR COMPLAINTS. CALL LIGHT WITHIN REACH.
--- NOTE | 2019-02-21 14:38 | NUR ---
WENT TO CHECK ON PT-APPEARS PT HAS GONE TO TAKE A SHOWER. WILL CHECK BACK
--- NOTE | 2019-02-21 15:20 | NUR ---
PT NOTED TO BE COUGHING CONTINIOUSLY. THIS RN TO ROOM. VITALS TAKEN, RR = 28, O2 AT 97% ON ROOM AIR. LUNG SOUNDS TIGHT AND WHEEZES NOTED. PT SITTING UP AT 90 DEGREES AND BENDING OVER KNEES TO BREATH. PT UNABLE TO FINISH A SENTENCE DUE TO WORK OF BRAETHING. RT CALLED FOR BREATHING TX. PT REPORTS ANXIETY, SEE MAR FOR MEDICATION GIVEN. LUNG SOUNDS CLEAR WITH BREATHING TREATMENT. PLUSE OX REMAINS ABOVE 95% ON ROOM AIR. HR REMAINS 100-109. PT REPORTS THE BREATHING TX "REALLY HELPED. PT NOW RELAXED LYING BACK IN BED WITH HOB AT 60 DEGRESSED. MINIMAL WORK OF BREATHING WITH NO RETRACTIONS OR ABDOMINAL MUSCLE USE. PT ABLE TO TALK WITH NORMAL MARISOL AND RHYTHEM. WATER REFILLED. NO ADDITIONAL REQUESTS OR COMPLAINTS AT THIS TIME. CASE MANAGEMENT TO BEDSIDE FOR CONSULTATION. CALL LIGHT WITHIN REACH.
--- NOTE | 2019-02-21 16:22 | NUR ---
PT READY FOR TRANSFERE. THIS RN TO MED/SURG WITH PT. PT AMBULATES X2 LAPS IN ANDUJAR AND THEN TO MED/SURG ROOM. PT TOLERATED AMBULATION WELL WITH NO SOB AND OCCATIONAL COUGH. PIV SALINE LOCKED PER MD ORDER. PT UP TO SHOWER INDEPENDANTLY IN MED/SURG ROOM WITH THIS RN SBA. AFTER SHOWER PT SETTLED INTO MED/SURG ROOM. VITALS TAKEN. REPORT GIVEN TO MIRI MED/RAISER HELPER, PT ORIENTED TO ROOM AND DEMONSTRATES USE OF CALL LIGHT. DINNER ORDER PLACED. NO ADDITONAL REQUESTS OR COMPLAINTS AT THIS TIME. CALL LIGHT WITHIN REACH.
--- NOTE | 2019-02-21 16:30 | NUR ---
Patient arrives to unit ambulating independently with nursing staff. Patient showered independently. Report received, orders acknowledged. Assessment complete. Patient denies any needs at this time, call light within reach.
--- NOTE | 2019-02-21 16:54 | NUR ---
In and spoke with Toyin. States she lives in [place]. Feels she exacerbated her asthma when she resumed smoking. Feels better today. Has a nebulizer at home. Denies use of other DME. No SDOH issues. Has a nicotine patch in place and will try to stop smoking. Plans to dc to home on DC.
[2019-02-21] MEDS ORDERED: NEURONTIN300 MG PO (16:58)
[2019-02-21] MEDS ORDERED: BUPROPION HCL150 M2 PO (16:59)
--- NOTE | 2019-02-21 17:05 | NUR ---
PT STATES UNDERSTANDING AND USING ING THE TEACH BACK METHOD SHE WAS ABLE TO PARTICIPATE IN THIS COMFORTABLY. PT KNOWS HER MEDICATIONS, SHE WAS GETTING READY TO MOVE TO THE MED SURG L -SO TOLD HER I WOULD COME BACK AND TALK WITH HER AGAIN TOMORROW.
--- NOTE | 2019-02-21 17:23 | NUR ---
PATIENT RESTING IN BED. IN ROOM. VITAL SIGNS AND I&O DONE. CALL LIGHT WITHIN REACH. NO OTHER NEEDS AT THIS TIME
--- NOTE | 2019-02-21 19:04 | NUR ---
IN ROOM FOR REPORT, PT IS AWAKE IN BED. SHE DENIES NEEDS AT THIS TIME. CALL LIGHT IS CLOSE.
--- NOTE | 2019-02-21 22:38 | NUR ---
IN ROOM TO ASSESS PT AND ADMINISTER MEDICATIONS. HER DAUGHTER WAS HERE VISITING AND WENT HOME FOR THE EVENING. SHE DENIES PAIN AND SOB AT THIS TIME. SHE REPORTS A DRY COUGH WITH NO PRODUCTION. HYDROXAZINE WAS ALSO ADMINISTERED FOR ANXIETY. PT DENIES FURTHER NEEDS AT THIS TIME. CALL LIGHT IS WITHIN REACH.
--- NOTE | 2019-02-22 00:30 | NUR ---
PT IS RESTING WITH EYES CLOSED, RR IS EVEN AND NONLABORED. CALL LIGHT IS WITHIN REACH.
--- NOTE | 2019-02-22 01:15 | NUR ---
PT IS AWAKE AND REQUESTED BREATHING TREATMENT, SHE DENIES FURTHER NEEDS AT THIS TIME. CALL LIGHT IS CLOSE, RT WAS CALLED.
--- NOTE | 2019-02-22 01:37 | NUR ---
PT JUST HAD NEB TRT AND REQUESTED MORE COUGH MEDICINE. ADMINISTERED TESSLAN PERRLS. PT DENIES FURTHER NEEDS AT THIS TIME. CALL LIGHT IS WITHIN REACH.
--- NOTE | 2019-02-22 03:44 | NUR ---
PT IS RESTING WITH EYES CLOSED, RR IS EVEN AND NONLABORED. CALL LIGHT IS CLOSE.
--- NOTE | 2019-02-22 06:19 | NUR ---
IN ROOM TO ADMINISTER SOLUMEDROL. VS TAKEN AND PT DENIES FURTHER NEEDS. CALL LIGHT IS WITHIN REACH.
--- NOTE | 2019-02-22 06:33 | NUR ---
PT DID WELL THROUGH THE NIGHT ON RA. SHE AMBULATES INDEPENDENTLY. IV IS SL. SHE DENIES PAIN AND SOB. PLAN IS TO DC TODAY.
--- NOTE | 2019-02-22 07:05 | NUR ---
0700: Report recieved from Barbara PATTERSON. Pt sleeping at this time, call abreu within reach.
--- NOTE | 2019-02-22 07:40 | NUR ---
PATIENTS BOARD UPDATED, CALL LIGHT IN REACH
--- NOTE | 2019-02-22 08:27 | NUR ---
PT RESTING IN HER BED AND SHE STATES THAT HER BREATHING FEELS "GOOD". SHE STATES HER CHEST IS A LITTLE SORE FROM THE COUGHING BUT DENIES ANY OTHER PROBLEMS. SHE DENIES COUGHING ANYTHING UP WHEN SHE COUGHS.
[2019-02-22] MEDS ORDERED: NICOTINE PATCH1 EACH TD (09:06)
[2019-02-22] MEDS ORDERED: BENZONATATE100 MG PO (09:06)
[2019-02-22] MEDS ORDERED: IPRAT-ALBUT 0.5-3 ML INH (09:06)
[2019-02-22] MEDS ORDERED: PREDNISONE20 MG PO (09:08)
[2019-02-22] MEDS ORDERED: SPIRIVA18 MCG INH (09:09)
--- NOTE | 2019-02-22 09:56 | NUR ---
Dr Diggs in room discussing discharge with Toyin today. Has nebulizer/ meds and nicotine patches at home. Referral sent to [facility] to assist with smoking cessation. Pt denies other DME needs. Plans to dc today.
--- NOTE | 2019-02-22 10:49 | NUR ---
PT STATES UNDERSTANDING OF DISCHARGE INSTRUCTIONS AND WAS GIVEN VERBAL AND WRITTEN INSTRUCTIONS. IV IN HER LEFT HAND WAS DC'D TIP INTACT. PT STATES HER IS ON HIS WAY IN TO TAKE HER HOME AT THIS TIME.
--- NOTE | 2019-02-22 12:25 | NUR ---
PT DRESSED, PERSONAL BELONGINGS PACKED AND WAITING FOR HER TO COME FROM [place] TO TAKE HER HOME. PT EXCITED TO BE DC'D. SAID SHE IS FEELING GOOD, PT HAD NO QUESTIONS-EXTENDED A BLESSING AND WILL FOLLOW NEEDED
== END 2019-02-22 12:05 | disposition home or self-care (01) | DRG 189 ==
LOC: ED 19:10 → CCU 23:09 → MS 02-21 16:20
PROVIDERS: ADMIT Internal Medicine
DX: J96.01 Acute respiratory failure with hypoxia (principal); J44.1 Chronic obstructive pulmonary disease with (acute) exacerbation; J45.41 Moderate persistent asthma with (acute) exacerbation; F17.210 Nicotine dependence, cigarettes, uncomplicated; K21.9 Gastro-esophageal reflux disease without esophagitis; F41.9 Anxiety disorder, unspecified; R91.8 Other nonspecific abnormal finding of lung field; Z79.899 Other long term (current) drug therapy; Z79.51 Long term (current) use of inhaled steroids
CPT/HCPCS: 71045; 80053; 83735; 84484; 85025; 90688; 93005; 93010; 94640; 94667; 94668; 94760; 96374; 96375; 99285-25; 99406; J1650; J2405; J2930; J7121; Q0177

== ENCOUNTER 2020-04-06 06:17 | Emergency (ER) | payer OTHER ==
[~2020-04-06] VITALS: Ht 157.5 cm; Wt 61.2 kg
[~2020-04-06 06:17] MED LIST changes: +BENZONATATE100 MG PO; +BUPROPION HCL150 M2 PO; +GABAPENTIN300 MG PO; +HYDROXYZINE PAM25 MG PO; +IPRAT-ALBUT 0.5-3 ML INH; +NEURONTIN300 MG PO; +NICOTINE PATCH1 EACH TD; +SPIRIVA18 MCG INH; +ZITHROMAX250 MG PO
[2020-04-06] MEDS ORDERED: PREDNISONE20 MG PO (08:14)
--- NOTE | 2020-04-06 13:59 | EKG ---
[facility] [address] [facility] [place], [place] [address] Signed Sinus rhythm with short TX Otherwise normal ECG When compared with ECG of 16-NOV-2019 02:26, No significant change was found Confirmed by ALIZA VILLARREAL DO ([id number]) on 04/06/2020 1:58:53 PM Electronically Signed By: ALIZA VILLARREAL DO 04/06/20 1359 PATIENT NAME: DOROTA DESIR BROOKS Electrocardiogram DATE OF : 66 PHYSICIAN: ALIZA VILLARREAL DO REPORT #: [id number] REPORT IS CONFIDENTIAL AND NOT TO BE RELEASED WITHOUT AUTHORIZATION
== END 2020-04-06 09:25 | disposition home or self-care (01) ==
LOC: ED 06:17
DX: J44.9 Chronic obstructive pulmonary disease, unspecified (principal); Z87.891 Personal history of nicotine dependence; Z79.899 Other long term (current) drug therapy; Z20.822 Contact with and (suspected) exposure to COVID-19
CPT/HCPCS: 71045; 80053; 83735; 83880; 84484; 85025; 85379; 93005; 93010; 96374; 99285-25; C9803; J2930; U0003

== ENCOUNTER 2020-05-14 01:18 | Inpatient (IN) | payer OTHER ==
[~2020-05-14] VITALS: Ht 157.5 cm; Wt 62.7 kg
[2020-05-14] MEDS ORDERED: IPRATROPIU0.2 MG/1 M INH (14:39)
[2020-05-14] MEDS ORDERED: NALTREXONE HCL50 MG PO (15:43)
[2020-05-14] MEDS ORDERED: MULTI VITAMIN1 EACH PO (15:44)
[2020-05-14] MEDS ORDERED: HAIR, SKIN AND1 EACH PO (15:45)
--- NOTE | 2020-05-15 17:02 | EKG ---
[facility] [address] [facility] [place] [address] Signed Sinus tachycardia with short MT Nonspecific ST and T wave abnormality Prolonged QT No significant change was found When compared with ECG of 04/06/2020 Confirmed by MALIK EDWARDS MD ([id number]) on 05/15/2020 5:01:55 PM Electronically Signed By: MALIK EDWARDS MD 05/15/20 1702 PATIENT NAME: DOROTA DESIR BROOKS Electrocardiogram DATE OF : 66 PHYSICIAN: MALIK EDWARDS MD REPORT #: [id number] REPORT IS CONFIDENTIAL AND NOT TO BE RELEASED WITHOUT AUTHORIZATION
[2020-05-17] MEDS ORDERED: ADVAIR 250-501 EACH INH (11:12)
[2020-05-18] MEDS ORDERED: PREDNISONE10 MG PO (09:07)
[2020-05-18] MEDS ORDERED: CEFUROXIME500 MG PO (09:08)
== END 2020-05-18 10:45 | disposition home or self-care (01) | DRG 189 ==
LOC: ED 01:18 → CCU 01:20 → MS 05-16 12:40
PROVIDERS: ADMIT Internal Medicine; ATTEND Internal Medicine
DX: J96.01 Acute respiratory failure with hypoxia (principal); J44.1 Chronic obstructive pulmonary disease with (acute) exacerbation; Z20.822 Contact with and (suspected) exposure to COVID-19; F41.8 Other specified anxiety disorders; J98.01 Acute bronchospasm; K59.00 Constipation, unspecified; G89.4 Chronic pain syndrome; Z79.899 Other long term (current) drug therapy; Z87.891 Personal history of nicotine dependence
CPT/HCPCS: 36600; 71045; 80053; 82803; 83880; 84484; 85025; 85379; 93005; 93010; 94640; 94644; 94660; 94664; 94668; 94760; 96366; 96367; C9803; G0378; J0696; J1650; J2270; J2405; J2930; J3475; J7121; Q0177; U0003

== ENCOUNTER 2021-01-08 09:10 | Emergency (ER) | payer OTHER ==
[~2021-01-08] VITALS: Ht 157.5 cm; Wt 63.5 kg
[~2021-01-08 09:10] MED LIST changes: +ADVAIR 250-501 EACH INH; +CEFUROXIME500 MG PO; +HAIR, SKIN AND1 EACH PO; +IPRATROPIU0.2 MG/1 M INH; +MULTI VITAMIN1 EACH PO; +NALTREXONE HCL50 MG PO; +PREDNISONE10 MG PO
[2021-01-08] MEDS ORDERED: GUAIFEN-CODEINE10 ML PO (13:06)
[2021-01-08] MEDS ORDERED: PREDNISONE20 MG PO (13:06)
== END 2021-01-08 13:15 | disposition home or self-care (01) ==
LOC: ED 09:10
DX: J40 Bronchitis, not specified as acute or chronic (principal); Z20.822 Contact with and (suspected) exposure to COVID-19; Z87.891 Personal history of nicotine dependence; J44.9 Chronic obstructive pulmonary disease, unspecified; Z79.899 Other long term (current) drug therapy
CPT/HCPCS: 71045; 80053; 83735; 84484; 85025; 94640; 99285-25; C9803; J1100; U0003

== ENCOUNTER 2022-01-14 05:57 | Day surgery (SDC) | payer OTHER ==
[~2022-01-14] VITALS: Ht 157.5 cm; Wt 63.6 kg
[~2022-01-14 05:57] MED LIST changes: +BENADRYL ALLERG25 MG PO; +GUAIFEN-CODEINE10 ML PO; +MULTI COMPLETE1 EACH PO
--- NOTE | 2022-01-14 08:23 | NUR ---
01/14/22 0823 Vinod Bell A REPORT RECIEVED FROM DUGLAS HARRIS PRIOR TO ASSUMING CARE. PATIENT ORIENTED TO TIME AND SITUATION. DENIES PAIN OR NAUSEA.
--- NOTE | 2022-01-14 10:00 | OR ---
[facility] [address] [place], [place] [address] Signed DATE OF OPERATION: 01/14/2022 SURGEON: Tino Akbar MD PREOPERATIVE DIAGNOSIS: Screening. POSTOPERATIVE DIAGNOSES: 1. 8-10 mm sessile polyp in proximal hepatic flexure. 2. Minimal left-sided diverticulosis. 3. Moderate internal hemorrhoids. PROCEDURE: Colonoscopy with snare polypectomy and hot biopsy. ESTIMATED BLOOD LOSS: None. INDICATIONS: Toyin is a 51-year-old female asked to see me for her initial screening colonoscopy. She has no lower GI complaints. She never knew her father. She told me her mother was adopted. She has no knowledge of any family history of colon cancer or polyps. We know she started smoking around age 19. She quit again about seven days prior to the office visit. She is known to have asthma and significant COPD. She also has several stable pulmonary nodules on her CT scan from 2018 and 2020. Her echocardiogram from 2020 was said to be normal. She appears to have generalized anxiety disorder. She has a significant amount of stress and she generally handles that with drinking vodka on a daily basis. She finally switched over to wine and is down to two glasses of white wine each evening. She told me she has had naltrexone in the past for the alcohol history. In the office, I had given her a pamphlet on colonoscopy. We reviewed the test together in detail. She was very anxious and we had to repeat the conversation frequently. In the end, she seemed to have a grasp of the procedure. There is risk including, but not limited to gas bloating, crampy abdominal pain, bleeding, perforation requiring surgery, and missed diagnosis. We also reviewed the need for monitored anesthesia care given her significant daily alcohol use and her pulmonary status. She had expressed understanding and wished to proceed. DESCRIPTION OF PROCEDURE: We had sent Toyin for preoperative blood work. Despite her alcohol history, we found that her INR is normal at 0.97. Also, her hemoglobin is slightly up at 15, but the Electronically Signed By: TINO AKBAR MD 01/14/22 1000 PATIENT NAME: TOYIN DESIR OPERATIVE REPORT DATE OF : 66 REPORT #: [id number] PHYSICIAN: TINO AKBAR MD PCP: UTE CHAKRABORTY REPORT IS CONFIDENTIAL AND NOT TO BE RELEASED WITHOUT AUTHORIZATION [facility] [address] [place], [place] [address] Signed platelet count is normal at 316. We can see that her liver function tests were fine with a total bilirubin of 0.6, AST 16, ALT 24, and alkaline phosphatase 66. We could see the albumin is normal at 4.2. EKG showed sinus tachycardia. Once in the endoscopy suite, she was placed in the left lateral decubitus position. She was given monitored anesthesia care with propofol only. Even then she took a significant amount of propofol and was frequently moving around in the bed. Overall though she was quite comfortable. A digital rectal exam was performed and this was unremarkable. She has good sphincter tone and no external hemorrhoids. There were no masses. The adult colonoscope was then introduced and advanced all around into the cecum under direct visualization of the camera without difficulty. She had been worried that her bowel prep was not going to be adequate. She needs to go much on her MiraLAX and Gatorade on her next colonoscopy to avoid nausea and vomiting, however, her prep was actually quite good. She had just a little bit of stool in the cecum, but otherwise it was quite excellent. We had taken pictures throughout for photodocumentation. We could see almost all the cecum and the ileocecal valve. We did find 8, may be 10 mm sessile polyp behind fold in the proximal hepatic flexure. We removed that with a combination of the snare and hot biopsy forceps. Overall, we think that was completely destroyed. Nevertheless, she could consider coming back on a shorter interval say anywhere from 1 to 3 years. We did see small diverticula in the left and sigmoid colon. They were small in size, few in number, and scattered about. Down in the rectum that was unremarkable. Upon retroflexion of the scope, she does have moderate internal hemorrhoid columns. After this, the gas was suctioned out and the colonoscope removed. Toyin tolerated the procedure quite well. RECOMMENDATIONS: I will see Toyin back in my office in 7 to 14 days to review her results. She will need to slow her bowel prep down in the future to avoid nausea and vomiting. She will always need monitored anesthesia care. She might consider a shorter 1 to 3 year followup interval given her sessile polyp at the hepatic flexure. MD AAKASH Tinajero/ELE /[id number] cc: YUNG Carrasco Electronically Signed By: TINO AKBAR MD 01/14/22 1000 PATIENT NAME: TOYIN DESIR OPERATIVE REPORT DATE OF : 66 REPORT #: [id number] PHYSICIAN: TINO AKBAR MD PCP: UTE CHAKRABORTY REPORT IS CONFIDENTIAL AND NOT TO BE RELEASED WITHOUT AUTHORIZATION [address] [place], [place] [address] Signed Tino Akbar MD Copies: UTE CHAKRABORTY ANDREW L MD ~ Electronically Signed By: TINO AKBAR MD 01/14/22 1000 PATIENT NAME: TOYIN DESIR OPERATIVE REPORT DATE OF : 66 REPORT #: [id number] PHYSICIAN: TINO AKBAR MD PCP: UTE CHAKRABORTY REPORT IS CONFIDENTIAL AND NOT TO BE RELEASED WITHOUT AUTHORIZATION
--- NOTE | 2022-01-14 14:05 | EKG ---
[facility] [address] [facility] [place] [address] Signed Sinus tachycardia Nonspecific T wave abnormality Abnormal ECG When compared with ECG of 14-MAY-2020 01:24, Nonspecific T wave abnormality now evident in Anterior leads Confirmed by Ania Ventura MD () on 01/14/2022 2:04:58 PM Electronically Signed By: ANIA VENTURA MD 01/14/22 1405 PATIENT NAME: DOROTA DESIR BROOKS Electrocardiogram DATE OF : 66 PHYSICIAN: ANIA VENTURA MD REPORT #: [id number] REPORT IS CONFIDENTIAL AND NOT TO BE RELEASED WITHOUT AUTHORIZATION
--- NOTE | 2022-01-19 20:01 | PATH ---
[facility] [address] [facility] [place], [place] [address] Signed SPECIMEN(S): A HEPATIC FLEXURE POLYP SPECIMEN SOURCE: A. HEPATIC FLEXURE POLYP CLINICAL HISTORY: Screening colonoscopy. Postop Dx: Internal hemorrhoids, diverticulosis, polyp. FINAL PATHOLOGIC DIAGNOSIS: Colon, hepatic flexure polyp, biopsy: - Hyperplastic colonic mucosa with extensive heat artifact and focal changes suspicious for tubular adenoma. (see comment) COMMENT: Definitive interpretation of the hepatic flexure polyp is limited by heat artifact. NRT:cml:C2NR MICROSCOPIC EXAMINATION: Histologic sections of all submitted blocks are examined by light microscopy. These findings, together with the gross examination, support the pathologic diagnosis. GROSS DESCRIPTION: The specimen, labeled "CR, 1," and designated on the requisition "hepatic flexure polypectomy," is received in formalin and consists of two fragments of pink-lozano tissue (0.4 cm in greatest dimension). The specimen is submitted entirely in cassette (A1). AC (under the direct supervision of a pathologist) The Gross Description was prepared using a voice recognition system. The report was reviewed for accuracy; however, sound-alike word errors, addition and/or deletions may occur. If there is any question about this report, please contact Client Services. PERFORMING LABORATORY: The technical component was performed by [employer], [address] [place] [id number] (CLIA# [id number]). [facility], [address], [address], [place] [address] (CLIA# [id number]). Diagnostician: Marylu Todd MD PATIENT NAME: DOROTA DESIR PATHOLOGY DATE OF : 66 REPORT #: [id number] PHYSICIAN: ANEL PATHOLOGY PCP: UTE CHAKRABORTY REPORT IS CONFIDENTIAL AND NOT TO BE RELEASED WITHOUT AUTHORIZATION [address] [address] Signed Pathologist Electronically Signed 01/19/2022 Copies: ~ PATIENT NAME: DOROTA DESIR PATHOLOGY DATE OF : 66 REPORT #: [id number] PHYSICIAN: ANEL PATHOLOGY PCP: UTE CHAKRABORTY REPORT IS CONFIDENTIAL AND NOT TO BE RELEASED WITHOUT AUTHORIZATION
== END 2022-01-14 08:46 | disposition home or self-care (01) ==
LOC: OPS 05:57 → DS 05:57 → OPS 07:30 → DS 10:00 → OPS 10:00
PROVIDERS: ATTEND Colon & Rectal Surgery
PROC: 0DBL8ZX Excision of Transverse Colon, Via Natural or Artificial Opening Endoscopic, Diagnostic (ICD-10-PCS; principal; 2022-01-14 07:30)
DX: Z12.11 Encounter for screening for malignant neoplasm of colon (principal); K63.5 Polyp of colon; K57.30 Diverticulosis of large intestine without perforation or abscess without bleeding; K64.8 Other hemorrhoids; J44.9 Chronic obstructive pulmonary disease, unspecified
CPT/HCPCS: 93005; 93010; J2704; J7121

== ENCOUNTER 2024-10-04 10:20 | Day surgery (SDC) | payer OTHER ==
[~2024-10-04] VITALS: Ht 157.5 cm; Wt 64.0 kg
--- NOTE | ~2024-10-04 | OR ---
[facility] [address] [place] [address] [place], [place] [address] Draft DATE OF OPERATION: 10/04/2024 SURGEON: Emeterio Cintron DO PREOPERATIVE DIAGNOSIS: Colon cancer screening. POSTOPERATIVE DIAGNOSES: 1. Colon cancer screening with diverticulosis. 2. Essential hemorrhoids. PROCEDURE PERFORMED: Colonoscopy. ANESTHESIA: IV sedation. ESTIMATED BLOOD LOSS: None. DRAINS: None. COMPLICATIONS: None. DESCRIPTION OF PROCEDURE: The patient was brought to the GI lab and placed in the supine position. After induction of IV sedation, the patient was then placed in the left lateral position and padded to the satisfaction of anesthesia. Digital rectal exam was then performed. Finding to be unremarkable. Olympus video endoscope was then introduced into the rectum and then while long under direct visualization insufflation, the scope was advanced through the rectosigmoid, sigmoid colon, descending colon, transverse colon, into the ascending colon and the cecum. General x-rays was carried out as the colon was distended and mucosal evaluation was completed. The ascending colon and cecum were without lesions or ulceration. No intrinsic or extrinsic masses were noted. Scope was then brought back in transverse colon, some scattered diverticula were noted without intrinsic or extrinsic lesions or ulcerations were noted. Scope was brought back into the descending colon. No intrinsic or extrinsic masses noted except for occasional diverticula. Scope was brought back into the sigmoid colon, some scattered diverticula PATIENT NAME: DOROTA DESIR OPERATIVE REPORT DATE OF : 66 REPORT #: [id number] PHYSICIAN: EMETERIO CINTRON DO PCP: UTE CHAKRABORTY REPORT IS CONFIDENTIAL AND NOT TO BE RELEASED WITHOUT AUTHORIZATION [facility] [address] [place], [place] [address] [place] were noted with no evidence of diverticulitis appreciated. No intrinsic or extrinsic masses were noted. Scope was brought back into the rectosigmoid and in the rectum area. No intrinsic or extrinsic masses, lesions, or ulcerations were noted. Some internal hemorrhoids were appreciated circumferentially, they were nonbleeding, nonthrombosed. Scope was then removed. The patient tolerated the procedure well and went to recovery room in satisfactory condition. DO JUNIE Alcazar/ELE /[id number] Copies: ~ PATIENT NAME: DOROTA DESIR OPERATIVE REPORT DATE OF : 66 REPORT #: [id number] PHYSICIAN: EMETEIRO CINTRON DO PCP: UTE CHAKRABORTY REPORT IS CONFIDENTIAL AND NOT TO BE RELEASED WITHOUT AUTHORIZATION
[~2024-10-04 10:20] MED LIST changes: +ALLEGRA ALLERG180 MG PO; +IBLOOD GLUCOSE TEST STRIP 1 EA TEST VI PRN; +LACTATED RINGER'S 1,000 ML IV SCH; +LIDOCAINE HCL 1% 5 ML SDV INJ ONE; +ZYRTEC10 M3 PO
[2024-10-04 10:21] VITALS: BP 138/90
[2024-10-04] MEDS ORDERED: LIDOCAINE HCL 2% 5 ML SDV ONE (11:07)
[2024-10-04] MEDS ORDERED: LACTATED RINGER'S 1,000 ML IV ONE (11:40)
--- NOTE | 2024-10-04 12:13 | NUR ---
10/04/24 1213 Ghada Morgan LE 1204: PT ARRIVES TO PACU AWAKE AND TRYING TO SIT UP IN BED. SHE IS ASSITED TO HER BACK. OXYGEN MASK TAKEN OFF BY DUGLAS. LE 1210: PT DENIES PAIN. SHE ASKS FOR WATER, ICE WATER GIVEN.
[2024-10-04 12:36] VITALS: BP 135/91
== END 2024-10-04 12:38 | disposition home or self-care (01) ==
LOC: DS 10:20
PROVIDERS: ATTEND Surgery
PROC: 0DJD8ZZ Inspection of Lower Intestinal Tract, Via Natural or Artificial Opening Endoscopic (ICD-10-PCS; principal; 2024-10-04 11:00)
DX: Z12.11 Encounter for screening for malignant neoplasm of colon (principal); K57.30 Diverticulosis of large intestine without perforation or abscess without bleeding; K64.8 Other hemorrhoids; J44.89 Other specified chronic obstructive pulmonary disease; K21.9 Gastro-esophageal reflux disease without esophagitis; Z87.891 Personal history of nicotine dependence; Z79.899 Other long term (current) drug therapy; Z88.8 Allergy status to other drugs, medicaments and biological substances
CPT/HCPCS: 00812; J2003; J2704; J7121